=== PATIENT | female | born 1975 | race American Indian/Alaskan Native ===

== ENCOUNTER 2017-11-11 05:59 | Day surgery (SDC) | payer OTHER ==
--- NOTE | 2017-11-10 21:48 | Short Stay Summary ---
Short Stay Documentation Date of service: 11/11/17 Narrative H&P: 42y/o with undesired fertility. She declines other contraceptive options. She elects for permanent sterilization. Patient has been reassessed/reevaluated/re-examined. H&P has been reviewed. No interval changes. - History Principal diagnosis: Undesired fertility Past Medical History: GERD Past Surgical History: Other (cauterization of gastric ulcer) Social history: - Allergies and Medications Current Medications: Allergies No Known Allergies Allergy (Unverified 11/10/17 18:08) Home Medications Medication Instructions Recorded Confirmed Last Taken Type No Known Home Medications [No 11/10/17 11/10/17 Unknown History Reported Home Medications] - Physical exam General appearance: no acute distress Integumentary: no rash HEENT: Atraumatic Lungs: Clear to auscultation Breasts: deferred Heart: Regular rate Gastrointestinal: normal Female Genitourinary: deferred Rectal Exam: deferred - Brief post op/procedure progress note Date of procedure: 11/11/17 Pre-op diagnosis: Undesired fertility Post-op diagnosis: same Procedure: laparoscopic bilateral tubal ligation Anesthesia: GETA Surgeon: GLORIA CLAYTON Estimated blood loss: none Pathology: none - Hospital course Hospital course: The patient was admitted the day of surgery and underwent a laparoscopic bilateral tubal ligation. Please see operative note for details of surgery. Her postoperative course was uneventful. - Disposition Condition at discharge: Good Disposition: DC-01 TO HOME OR SELFCARE Short Stay Discharge Plan Activity: other (pelvic rest for 1 week) Diet: regular Additional Instructions: Follow-up is not required Follow-up as needed Prescriptions: Ibuprofen [Motrin] 800 mg PO Q8HR PRN #60 tablet PRN Reason: Pain oxyCODONE /ACETAMINOPHEN [Percocet 5/325] 1 tab PO Q6HR PRN #30 tablet PRN Reason: Pain
[~2017-11-11 05:59] MED LIST: VERSED IV NR
--- NOTE | 2017-11-11 06:49 | Anesthesia Consultation ---
Anesthesia Consult and Med Hx Date of service: 11/11/17 - Airway Anesthetic Teeth Evaluation: Good ROM Head & Neck: Adequate Mental/Hyoid Distance: Adequate Mallampati Class: Class I Intubation Access Assessment: Good - Pulmonary Exam CTA: Yes - Cardiac Exam Cardiac Exam: RRR - Pre-Operative Health Status ASA Pre-Surgery Classification: ASA1 Proposed Anesthetic Plan: General - Cardiovascular System Hx Heart Murmur: Yes (not heard today) - Central Nervous System Hx Psychiatric Problems: No - Hematic Hx Anemia: Yes - Other Systems Hx Alcohol Use: Yes (occas) Hx Cancer: No
[2017-11-11] MEDS ORDERED: PERCOCET 5/325 PO PRN (06:50)
[2017-11-11] MEDS ORDERED: ZOFRAN IV PRN (06:50)
--- NOTE | 2017-11-11 06:50 | Anesthesia Day of Surgery ---
Anesthesia Day of Surgery - Day of Surgery Patient Examined: Yes Patient H&P Reviewed: Yes Patient is NPO: Yes
[2017-11-11] MEDS ORDERED: NACL 0.9% 1000 ML 1,000 ML IV SCH (07:00)
[2017-11-11] MEDS ORDERED: PEPCID PO NR (07:00)
[2017-11-11] MEDS ORDERED: VERSED IV NR (07:00)
[2017-11-11 07:07] LABS: Hematocrit 42.4 % (30.3-42.9); Hemoglobin 13.7 gm/dl (10.1-14.3)
[2017-11-11] MEDS ORDERED: MARCAINE 0.5% 30 ML INFILTRATI ONE (07:22)
[2017-11-11] MEDS ORDERED: DIPRIVAN 10 MG/ML IV ONE (07:30)
[2017-11-11] MEDS ORDERED: DILAUDID ONE (07:32)
[2017-11-11] MEDS ORDERED: ZEMURON IV ONE (07:32)
[2017-11-11] MEDS ORDERED: XYLOCAINE MPF 2% ONE (07:32)
[2017-11-11] MEDS ORDERED: DECADRON ONE (07:48)
[2017-11-11] MEDS ORDERED: ZOFRAN ONE (07:49)
[2017-11-11] MEDS ORDERED: MARCAINE 0.5% INFILTRATI ONE (07:53)
[2017-11-11] MEDS ORDERED: NACL 0.9% IR ONE (07:53)
[2017-11-11] MEDS ORDERED: QUELICIN ONE (07:57)
--- NOTE | 2017-11-11 08:17 | Operative Report ---
Operative Report Operative Report: Date of surgery: 11/11/2017 Preoperative diagnosis: Unwanted fertility Postoperative diagnosis: Same as above Procedure: Laparoscopic bilateral tubal ligation with Filshie clips Surgeon: Bess Summers M.D. Anesthesia: General endotracheal anesthesia Estimated blood loss: Minimal Findings: Normal uterus tubes and ovaries bilaterally Indication: 42-year-old with undesired fertility. The patient has elected for permanent sterilization. Procedure: The patient was taken to the operating room and given general endotracheal anesthesia without complication. The patient is prepped and draped in a normal sterile fashion. A bivalve speculum was placed in the patient's vagina and a single-tooth tenaculum was placed on the anterior lip of the cervix .A uterine acorn manipulato rwas placed, and the bivalve speculum was then removed. Attention was then turned to the patient's abdomen where a 5 mm infraumbilical skin incision was then made. A Veress needle was placed and peritoneal entry was verified water-filled syringe. Insufflation of the peritoneal cavity was performed with CO2 gas. A 5 mm trocar was placed and the laparoscope was then inserted. The patient was then placed in Trendelenburg. A 7 mm suprapubic skin incision was then made. Under direct visualization a 7 mm trocar was then placed. General survey of the patient's abdomen revealed normal uterus tubes and ovaries. The fallopian tube was then followed out to the fimbriated end. A Filshie clip was placed, on the ampullary portion of the tube. This was performed on the contralateral side as well. The 7 mm trocar was then removed. The pneumoperitoneum was then released. The 5 mm trocar laparoscope was then removed. The skin incisions were then closed with 4-0 Monocryl. The incisions were injected with quarter percent Marcaine. Dressings were applied to the incision. The vaginal instruments were then removed atraumatically. Then successfully extubated and taken to the recovery room. All sponge laps and needle counts were correct 2.
[2017-11-11] MEDS ORDERED: PROVENTIL IH ONE (08:27)
[2017-11-11] MEDS ORDERED: PROVENTIL IH PRN (08:30)
[2017-11-11] MEDS: MORPHINE IV PRN ×2 (08:57→09:16)
[2017-11-11] MEDS ORDERED: TORADOL IV ONE (09:01)
--- NOTE | 2017-11-11 09:52 | Post Anesthesia Evaluation ---
- Post Anesthesia Evaluation Patient Participated: Yes Airway Patent: Yes Stable Respiratory Function: Yes Temp > 96.8F: Yes Pain Manageable: Yes Adequeate Hydration: Yes Anesthesia Complications: No
[2017-11-11 13:32] VITALS: BP 121/68
== END 2017-11-11 12:06 | disposition home or self-care (01) ==
LOC: OR 05:59
PROVIDERS: ATTEND Obstetrics & Gynecology
DX: Z30.2 Encounter for sterilization (principal); K21.9 Gastro-esophageal reflux disease without esophagitis; Z98.890 Other specified postprocedural states
CPT/HCPCS: 36415; 58671; 81025; 85014; 85018; J0330; J1100; J1170; J1885; J2250; J2270; J2405; J2704; J7030

== ENCOUNTER 2018-03-09 21:23 | Emergency (ER) | payer OTHER ==
--- NOTE | 2018-03-10 01:29 | XRay Report ---
FINAL REPORT EXAM: XR FOOT 3+V LT HISTORY: foot pain, swelling TECHNIQUE: Three views of the left foot were submitted. FINDINGS: There is no evidence of fracture or soft tissue injury. IMPRESSION: Within normal limits.
[2018-03-10] MEDS ORDERED: TYLENOL PO ONE (02:32)
[2018-03-10] MEDS ORDERED: MOTRIN PO ONE (02:32)
--- NOTE | 2018-03-10 02:33 | Emergency Department Report ---
ED Lower Extremity HPI - General Chief Complaint: Extremity Injury, Lower Stated Complaint: LEFT FOOT PAIN Time Seen by Provider: 03/10/18 02:13 Source: patient Mode of arrival: Ambulatory Limitations: No Limitations - Related Data Previous Rx's Medication Instructions Recorded Last Taken Type Ibuprofen [Motrin] 800 mg PO Q8HR PRN #60 tablet 11/11/17 Unknown Rx oxyCODONE /ACETAMINOPHEN [Percocet 1 tab PO Q6HR PRN #30 tablet 11/11/17 Unknown Rx 5/325] Acetaminophen [Tylenol Arthritis] 650 mg PO Q6HR PRN #30 tablet.er 03/10/18 Unknown Rx Ibuprofen [Motrin] 600 mg PO Q8H PRN #30 tablet 03/10/18 Unknown Rx Allergies Allergy/AdvReac Type Severity Reaction Status Date / Time No Known Allergies Allergy Unverified 11/10/17 18:08 ED Review of Systems ROS: Stated complaint: LEFT FOOT PAIN Other details as noted in HPI ED Past Medical Hx - Past Medical History Previous Medical History?: Yes Hx GERD: Yes - Surgical History Past Surgical History?: No - Social History Smoking Status: Never Smoker Substance Use Type: None - Medications Home Medications: Home Medications Medication Instructions Recorded Confirmed Last Taken Type Ibuprofen [Motrin] 800 mg PO Q8HR PRN #60 tablet 11/11/17 Unknown Rx oxyCODONE /ACETAMINOPHEN [Percocet 1 tab PO Q6HR PRN #30 tablet 11/11/17 Unknown Rx 5/325] Acetaminophen [Tylenol Arthritis] 650 mg PO Q6HR PRN #30 tablet.er 03/10/18 Unknown Rx Ibuprofen [Motrin] 600 mg PO Q8H PRN #30 tablet 03/10/18 Unknown Rx ED Physical Exam - General Limitations: Physical Limitation General appearance: alert, in no apparent distress - Head Head exam: Present: atraumatic, normocephalic - Eye Eye exam: Present: normal appearance, EOMI. Absent: nystagmus - ENT ENT exam: Present: normal exam, normal orophraynx, mucous membranes moist, normal external ear exam - Neck Neck exam: Present: normal inspection, full ROM - Respiratory Respiratory exam: Present: normal lung sounds bilaterally. Absent: respiratory distress - Cardiovascular Cardiovascular Exam: Present: regular rate, normal rhythm, normal heart sounds. Absent: systolic murmur, diastolic murmur, rubs, gallop - GI/Abdominal GI/Abdominal exam: Present: soft, normal bowel sounds. Absent: distended, tenderness, guarding, rebound, rigid, pulsatile mass - Extremities Exam Extremities exam: Present: normal inspection, full ROM, tenderness, normal capillary refill, other (2+ pulses noted in the bilateral upper and lower extremities. The compartments are soft. There is no long bony tenderness. The left dorsal aspect of the foot is tender, dorsiflexion is intact, plantar flexion is intact. Quinonez test is intact.). Absent: pedal edema, joint swelling, calf tenderness - Back Exam Back exam: Present: normal inspection, full ROM. Absent: paraspinal tenderness , vertebral tenderness - Neurological Exam Neurological exam: Present: alert, oriented X3, CN II-XII intact, motor sensory deficit, other (Extraocular movements intact. Tongue midline. No facial droop. Facial sensation intact to light touch in the V1, V2, V3 distribution bilaterally. 5 and 5 strength in 4 extremities.. Sensation is intact to light touch in 4 extremities.). Absent: normal gait (patient walks with a slight limp. Favors the right lower extremity) - Psychiatric Psychiatric exam: Present: normal affect, normal mood - Skin Skin exam: Present: warm, dry, intact, normal color. Absent: rash ED Course Vital Signs 03/10/18 00:52 Temperature 98.4 F Pulse Rate 74 Respiratory 18 Rate Blood Pressure 145/89 O2 Sat by Pulse 99 Oximetry ED Lower Extremity MDM - Lab Data Vital Signs 03/10/18 00:52 Temperature 98.4 F Pulse Rate 74 Respiratory 18 Rate Blood Pressure 145/89 O2 Sat by Pulse 99 Oximetry - Radiology Data Radiology results: report reviewed, image reviewed x-ray of the left foot demonstrates no fracture or dislocation - Medical Decision Making Differential diagnosis, including not limited to: Fracture, sprain, dislocation , tendinitis Assessment and plan: 42-year-old female with nontraumatic left dorsal foot pain which is reproducible. She reports that she is not . There is no clinical indication of DVT, cellulitis, compartment syndrome, or rhabdomyolysis. She walks with a slight limp. She will be made weightbearing as tolerated, crutches, she will be referred to outpatient orthopedic sports medicine for physical therapy evaluation and orthotic evaluation. There does not appear to be an emergent or lethal condition at this time. The patient is medically stable to follow as an outpatient. Critical care attestation.: If time is entered above; I have spent that time in minutes in the direct care of this critically ill patient, excluding procedure time. ED Disposition Clinical Impression: Left foot pain Disposition: - TO HOME OR SELFCARE Is pt being admited?: No Does the pt Need Aspirin: No Condition: Stable Instructions: Arthralgia (ED), Tendinitis (ED) Additional Instructions: Take pain medication as directed. Weightbearing as tolerated. Use crutches as needed/directed. Follow-up with an outpatient physical therapist and orthopedic [facility] or family medicine [facility]. For your convenience, the local sports medicine facility at [place] is as listed: [address] [place] [address] [facility] Main: [phone] Appointments: [phone] Please return to the ER right away with fevers, chills, lethargy, irritability, projectile vomiting, change in mental status, confusion, inability to tolerate liquid feeds. Referrals: CHAMP DOLL MD [Primary Care Provider] - 3-5 Days JUAN JOSÉ RAMEY MD [Staff Physician] - 3-5 Days
[2018-03-10 03:49] VITALS: BP 113/71
== END 2018-03-10 03:25 | disposition home or self-care (01) ==
LOC: ED 21:23
DX: M79.672 Pain in left foot (principal); K21.9 Gastro-esophageal reflux disease without esophagitis
CPT/HCPCS: 99284

== ENCOUNTER 2021-04-10 09:00 | Day surgery (SDC) | payer MEDICAID, OTHER ==
--- NOTE | 2021-04-08 12:39 | Anesthesia Consultation ---
Anesthesia Consult and Med Hx Date of service: 04/10/21 - Airway Anesthetic Teeth Evaluation: Good ROM Head & Neck: Adequate Mental/Hyoid Distance: Adequate Mallampati Class: Class II Intubation Access Assessment: Good - Pre-Operative Health Status ASA Pre-Surgery Classification: ASA2 Proposed Anesthetic Plan: General Nerve Block: TAP - Pulmonary Hx Smoking: No - Cardiovascular System Hx Hypertension: No Hx Heart Murmur: Yes - Central Nervous System Hx Psychiatric Problems: No - Gastrointestinal Hx Gastroesophageal Reflux Disease: Yes (Dietary) - Hematic Hx Anemia: Yes Hx Sickle Cell Disease: No - Other Systems Hx Alcohol Use: Yes (Occas) Hx Cancer: No
[2021-04-08 13:15] LABS: Basophils % (Auto) 0.6 % (0.0-1.8); Eosinophils # (Auto) 0.1 K/mm3 (0.0-0.4); Eosinophils % (Auto) 1.6 % (0.0-4.3); Hematocrit 36.3 % (30.3-42.9); Hemoglobin 11.6 gm/dl (10.1-14.3); Lymphocytes # (Auto) 1.2 K/mm3 (1.2-5.4); Lymphocytes % (Auto) 28.6 % (13.4-35.0); Mean Corpuscular HGB Conc 32 % (30-34); Mean Corpuscular Volume 79 fl (79-97); Monocytes # (Auto) 0.3 K/mm3 (0.0-0.8); Monocytes % (Auto) 8.1 % (0.0-7.3); Platelet Count 219 K/mm3 (140-440); Red Blood Count 4.59 M/mm3 (3.65-5.03); Red Cell Distribution Width 17.7 % (13.2-15.2)
[~2021-04-10 09:00] MED LIST changes: +ACETAMINOPHEN 500 MG TAB PO NR; +CELECOXIB 200 MG CAP PO NR; +GABAPENTIN 300 MG CAP PO NR; +LACTATED RINGERS 1,000 ML IV SCH; +MAGNESIUM OXIDE 400 MG TAB PO NR; +MIDAZOLAM 2 MG/2 ML INJ IV NR; -VERSED IV NR; +fentaNYL 100 MCG/2 ML INJ IV NR
[2021-04-10] MEDS ORDERED: ceFAZolin/Water 2 GM/20 ML 2 GM/20 ML SYRINGE IV NR (10:00)
--- NOTE | 2021-04-10 10:03 | Anesthesia Day of Surgery ---
Anesthesia Day of Surgery - Day of Surgery Patient Examined: Yes Patient H&P Reviewed: Yes Patient is NPO: Yes
[2021-04-10] MEDS ORDERED: KETOROLAC 30 MG/1 ML INJ ONE (10:30)
[2021-04-10] MEDS ORDERED: ONDANSETRON 4 MG/2 ML INJ ONE ×2 (10:30→14:45)
[2021-04-10] MEDS ORDERED: fentaNYL 100 MCG/2 ML INJ ONE (10:34)
[2021-04-10] MEDS ORDERED: propofoL 200 MG/20 ML VIAL IV ONE (10:34)
[2021-04-10] MEDS ORDERED: HYDROmorphone 1 MG/1 ML INJ ONE ×2 (10:35→14:45)
[2021-04-10] MEDS ORDERED: LIDOCAINE MPF (2%) 20 MG/1 ML VIAL 5 ML ONE (10:40)
[2021-04-10] MEDS ORDERED: ROCURONIUM 50 MG/5 ML INJ IV ONE (10:40)
[2021-04-10] MEDS ORDERED: dexAMETHasone 20 MG/5 ML VIAL ONE ×2 (10:40→10:43)
[2021-04-10] MEDS ORDERED: SUCCINYLCHOLINE CHLORIDE 200 MG/10 ML INJ MDV ONE (10:40)
[2021-04-10] MEDS ORDERED: ePHEDrine SULFATE 50 MG/1 ML INJ ONE (10:41)
[2021-04-10] MEDS ORDERED: BUPIVACAINE/PF (0.25%) 2.5 MG/ML 30 ML VIAL INFILTRATI ONE (10:42)
[2021-04-10] MEDS ORDERED: NEOMY 40 MG/POLYMYXIN B 200,000 UNITS/ML (GU) AMPULE IR ONE ×3 (10:43→12:05)
[2021-04-10] MEDS ORDERED: BUPIVACAINE/PF (0.5%) 5 MG/1 ML 30 ML VIAL INFILTRATI ONE (10:46)
[2021-04-10] MEDS ORDERED: SODIUM CHLORIDE 0.9% IRR 1,500 ML BOTTLE IR ONE (12:06)
[2021-04-10] MEDS ORDERED: SODIUM CHLORIDE 0.9% IRRIG SOLN 2000 ML IR ONE (12:06)
[2021-04-10] MEDS ORDERED: SUGAMMADEX SODIUM 200 MG/2 ML VIAL IV ONE (12:39)
--- NOTE | 2021-04-10 12:40 | Short Stay Summary ---
Short Stay Documentation Date of service: 04/10/21 Narrative H&P: 45y/o presents with dysfunctional uterine bleeding. Pelvic ultrasound demonstrates findings suggestive of adenomyosis. The patient reports pain with menses. Also there were findings of endometrial polyps. The patient has elected for definitive surgical management. - History Principal diagnosis: Dysfunctional uterine bleeding Past Medical History: GERD, other (anemia) Past Surgical History: No surgical history Social history: single - Allergies and Medications Current Medications: Allergies No Known Allergies Allergy (Unverified 11/10/17 18:08) Home Medications Medication Instructions Recorded Confirmed Last Taken Type No Known Home Medications [No 04/05/21 04/05/21 Unknown History Reported Home Medications] Active Medications Acetaminophen (Acetaminophen 500 Mg Tab) 1,000 mg PO ONCE NR Stop: 04/10/21 20:00 Celecoxib (Celecoxib 200 Mg Cap) 400 mg PO PREOP NR Stop: 04/10/21 20:00 Fentanyl (Fentanyl 100 Mcg/2 Ml Inj) 100 mcg IV ONCE NR Stop: 04/10/21 20:00 Gabapentin (Gabapentin 300 Mg Cap) 600 mg PO PREOP NR Stop: 04/10/21 20:00 Lactated Ringer's (Lactated Ringers) 1,000 mls @ 125 mls/hr IV DIRECT KONRAD Magnesium Oxide (Magnesium Oxide 400 Mg Tab) 400 mg PO ONCE NR Stop: 04/10/21 20:00 Midazolam HCl (Midazolam 2 Mg/2 Ml Inj) 2 mg IV PREOP NR Stop: 04/10/21 23:59 - Physical exam General appearance: no acute distress Integumentary: no rash HEENT: Atraumatic Lungs: Clear to auscultation Breasts: deferred Heart: Regular rate Gastrointestinal: normal Female Genitourinary: deferred Rectal Exam: deferred - Brief post op/procedure progress note Date of procedure: 04/10/21 Pre-op diagnosis: Dysfunctional uterine bleeding; adenomyosis Post-op diagnosis: same Procedure: Robotic hysterectomy Bilateral salpingectomy Left ovarian cystectomy Anesthesia: GETA Surgeon: GLORIA CLAYTON Estimated blood loss: 50-100ml Pathology: list (Uterus, cervix, bilateral tubes, ovarian cyst) Specimen disposition: to lab Condition: stable - Hospital course Hospital course: The patient was admitted the day of surgery underwent a robotic hysterectomy and bilateral salpingectomy. Please see operative note for details of surgery. Her postoperative course was uneventful. - Disposition Condition at discharge: Good Disposition: DC-01 TO HOME OR SELFCARE Short Stay Discharge Plan Activity: other (Pelvic rest for 6 weeks) Diet: regular Additional Instructions: Schedule follow-up with Dr. Clayton in 4 weeks
--- NOTE | 2021-04-10 12:43 | Operative Report ---
Operative Report Operative Report: Date of surgery: April 10, 2021 Preoperative diagnoses: Dysfunctional uterine bleeding; adenomyosis Postoperative diagnoses: Same as above; left ovarian cyst Procedure: Robotic hysterectomy; bilateral salpingectomy; left ovarian cystectomy Surgeon: Bess Mancera M.D. Housekeeping Attendant: Kacy Lamb Anesthesia: Gen. endotracheal anesthesia Estimated blood loss: 50 mL Pathology: Uterus, cervix, bilateral tubes, left ovarian cyst Indication: 45-year-old -0-0-3 with a history of dysfunctional uterine bleeding and findings consistent with adenomyosis. The patient elected for definitive surgical management. Procedure: The patient was taken to the operating room and given general endotracheal anesthesia without complication after a time out was performed confirming the surgery and identity of the patient. She was prepped and draped in a normal sterile fashion. A bivalve speculum was placed in the patient's vagina and a single-tooth tenaculum placed on the anterior lip of the cervix. The uterus was sounded with the uterine sound. A stay suture with 0-vicryl was placed at 12 o'clock on the anterior cervix. A [employer] uterine manipulator was placed in the bivalve speculum was then removed. A warm laparotomy sponge was placed in the vagina. Attention was then turned to the patient's abdomen where a 12millimeter supra umbilical skin incision was then made. A Veress needle was placed and peritoneal entry was verified water-filled syringe. Insufflation of the peritoneal cavity was performed with CO2 gas. The 12 mm trocar was then placed under direct visualization. An additional 8 mm robotic trocar was placed on the patient's left and right lateral side just opposite of the supraumbilical trocar. An additional 5 mm right lateral trocar was then placed as the accessory port. The supraumbilical 12 mm trocar site was closed with the [employer] Quinonez device and 0-vicryl suture. The patient was then placed in steep Trendelenburg. The [employer] robot was then engaged. A fenestrated forcep was placed in arm 2 and a vessel sealer was placed in arm 1. Left ovarian simple cysts normal tubes bilaterally. Normal uterus, previous tubal ligation. The surgeon then transferred to the surgical console. The mesosalpinx was then isolated on the right. The vessel sealer was used to coagulate the mesosalpinx which was then transected. The tube was transected from the ovary. The tubo- ovarian ligament was then coagulated and transected. The round ligament was then coagulated and transected also. The vesicouterine peritoneum was then entered from the patient's right side. The uterine vessels were then coagulated with the vessel sealer. The vessels were then transected . Attention was then turned to the patient's left side where the tubo-ovarian ligament and mesosalpinx were again isolated coagulated and transected. The vesical peritoneum was then entered from the left and joined in the midline. Peritoneum was reflected off of the lower uterine segment. Uterine vessels were then coagulated and then transected. The blood supply to the uterus was adequately contained, a posterior colpotomy was made. The vessel sealer was used to excise the left ovarian cyst. The tissue was removed through the accessory trocar. The V care ring was visualized. Posterior colpotomy was created with the monopolar scissors. The incision was continued circumferentially until anterior colpotomy was made. The cervix and uterus were amputated from the vaginal cuff. The uterus was then removed along with the tubes bilaterally through the vagina and a warm laparotomy sponge was placed and maintain the pneumoperitoneum. The vaginal cuff was then closed in a running fashion with V lock suture. Irrigation of the pelvis was performed. Hemoblast was applied to the incision. The [employer] robot was undocked. The trocars were removed and the insuffliation was released. The skin was then reapproximated with 4-0 Monocryl. The tissue was sent to pathology which included the cervix, bilateral tubes and uterus. The patient was then successfully extubated. She was then taken to the recovery room in stable condition. All sponge laps and needle counts were correct x2.
[2021-04-10] MEDS ORDERED: HYDROmorphone 1 MG/1 ML INJ IV PRN ×2 (14:50)
[2021-04-10] MEDS ORDERED: ONDANSETRON 4 MG/2 ML INJ IV PRN (14:50)
[2021-04-10 16:52] VITALS: BP 147/81
--- NOTE | 2021-04-10 19:18 | Post Anesthesia Evaluation ---
- Post Anesthesia Evaluation Patient Participated: Yes Airway Patent: Yes Stable Respiratory Function: Yes Nausea/Vomiting: No Temp > 96.8F: Yes Pain Manageable: Yes Adequeate Hydration: Yes Anesthesia Complications: No Block Receding Appropriately: Yes Patient on Ventilator: No
== END 2021-04-10 09:01 | disposition home or self-care (01) ==
LOC: OR 09:00
PROVIDERS: ATTEND Obstetrics & Gynecology
DX: N93.8 Other specified abnormal uterine and vaginal bleeding (principal); N80.0 Endometriosis of uterus; N83.202 Unspecified ovarian cyst, left side; N88.8 Other specified noninflammatory disorders of cervix uteri; K21.9 Gastro-esophageal reflux disease without esophagitis; Z98.51 Tubal ligation status; Z72.89 Other problems related to lifestyle; Z98.890 Other specified postprocedural states; Z86.2 Personal history of diseases of the blood and blood-forming organs and certain disorders involving the immune mechanism
CPT/HCPCS: 36415; 58552; 58662; 84703; 85025; 86850; 86870; 86900; 86901; 88305; 88307; A4217; J0330; J0690; J1100; J1170; J1885; J2250; J2405; J2704; J3010; J7120; S2900; 64450